=== PATIENT | male | born 1995 | race Caucasian/White ===

== ENCOUNTER 2019-09-25 21:56 | Inpatient (IN) | payer OTHER ==
[2019-09-25] MEDS ORDERED: METOPROLOL TARTRATE 5 MG/5 ML INJ IV ONE (22:39)
[2019-09-25 23:01] LABS: Absolute Lymphocytes (CBC) 4.4 K/uL (0.7-4.9); Hematocrit 42.1 % (39.6-49.0); Lymphocytes % 45.4 % (15.3-44.8); MPV 8.2 fL (7.6-11.3)
[2019-09-25 23:12] LABS: Barbiturates NEGATIVE (NEGATIVE); Benzodiazepines NEGATIVE (NEGATIVE); Cocaine NEGATIVE (NEGATIVE); METHAMPHETAM NEGATIVE (NEGATIVE); Methadone NEGATIVE (NEGATIVE); Opiates NEGATIVE (NEGATIVE); Phencyclidine NEGATIVE (NEGATIVE); THC Cannibis NEGATIVE (NEGATIVE)
[2019-09-25 23:20] LABS: Urine Blood NEGATIVE (NEG); Urine Glucose NEGATIVE (NEG); Urine Protein NEGATIVE (NEG); Urine Specific Gravity 1.015 (1.005-1.030)
[2019-09-25 23:24] LABS: ALT/SGPT 83 U/L (12-78); AST/SGOT 33 U/L (15-37); Albumin 3.9 g/dL (3.4-5.0); Alkaline Phosphatase 67 U/L (45-117); BUN Blood Urea Nitrogen 14 mg/dL (7-18); Bicarbonate 27 mmol/L (21-32); Bilirubin Direct < 0.1 mg/dL (0-0.2); Bilirubin Total 0.2 mg/dL (0.2-1.0); Glucose Level 120 mg/dL (74-106); Magnesium 2.2 mg/dL (1.8-2.4); Potassium 3.5 mmol/L (3.5-5.1); Sodium Level 142 mmol/L (136-145); Troponin (Emerg Dept Use Only) < 0.02 ng/mL (0.0-0.045)
[2019-09-25 23:25] LABS: NT PRO-BNP < 5 pg/mL (<125)
[2019-09-25 23:43] LABS: Protime INR 0.98
--- NOTE | 2019-09-25 23:55 | EDPHYS ---
Physician Documentation [facility] Name: Doe Blanton Age: 24 yrs Sex: Male : 1995 Arrival Date: 09/25/2019 Time: 21:58 Bed 2 Private MD: ED Physician Chalo Wang HPI: 09/24 22:40 This 24 yrs old Male presents to ER via Ambulatory with complaints of Heart mh7 Racing. 22:40 The patient presents with a history of heart racing. Context: The symptoms occur at mh7 rest. Onset: The symptoms/episode began/occurred suddenly, just prior to arrival. Duration: The patient or guardian reports multiple episodes, that are intermittent. Modifying factors: The symptoms are aggravated by nothing. The symptoms are alleviated by nothing. Associated signs and symptoms: Pertinent positives: SOB, Pertinent negatives: anxiety, chest pain, cough, fever, lightheadedness, nausea, syncope, near-syncope, unusual stressors, vertigo, vomiting. Severity of symptoms: At their worst the symptoms were moderate just prior to arrival, in the emergency department the symptoms have improved moderately. The patient has experienced a previous episode, approximately 5 years ago. Patient states that he felt his heart racing while he was playing video games. He also had SOB with exertion. He denies any chest pain, fever, nausea, vomiting, or abdominal pain.. Historical: - Allergies: 22:08 No Known Drug Allergies; ll1 - PMHx: 22:08 Atrial Fib; ll1 - PSHx: 22:08 None; ll1 - Immunization history:: Adult Immunizations up to date. - Social history:: Patient/guardian denies using alcohol, street drugs, tobacco products, Smoking status: Patient denies any tobacco usage or history of. ROS: 22:40 Constitutional: Negative for fever, chills, and weight loss, Eyes: Negative for injury, mh7 pain, redness, and discharge, ENT: Negative for injury, pain, and discharge, Neck: Negative for injury, pain, and swelling, Abdomen/GI: Negative for abdominal pain, nausea, vomiting, diarrhea, and constipation, Back: Negative for injury and pain, : Negative for injury, bleeding, discharge, and swelling, MS/Extremity: Negative for injury and deformity, Skin: Negative for injury, rash, and discoloration, Neuro: Negative for headache, weakness, numbness, tingling, and seizure, Psych: Negative for depression, anxiety, suicide ideation, homicidal ideation, and hallucinations, Allergy/Immunology: Negative for hives, rash, and allergies, Endocrine: Negative for neck swelling, polydipsia, polyuria, polyphagia, and marked weight changes, Hematologic/Lymphatic: Negative for swollen nodes, abnormal bleeding, and unusual bruising. Exam: 22:40 Constitutional: This is a well developed, well nourished patient who is awake, alert, mh7 and in no acute distress. Head/Face: Normocephalic, atraumatic. Eyes: Pupils equal round and reactive to light, extra-ocular motions intact. Lids and lashes normal. Conjunctiva and sclera are non-icteric and not injected. Cornea within normal limits. Periorbital areas with no swelling, redness, or edema. ENT: Nares patent. No nasal discharge, no septal abnormalities noted. Tympanic membranes are normal and external auditory canals are clear. Oropharynx with no redness, swelling, or masses, exudates, or evidence of obstruction, uvula midline. Mucous membranes moist. Neck: Trachea midline, no thyromegaly or masses palpated, and no cervical lymphadenopathy. Supple, full range of motion without nuchal rigidity, or vertebral point tenderness. No Meningismus. Chest/axilla: Normal chest wall appearance and motion. Nontender with no deformity. No lesions are appreciated. 22:40 Respiratory: Lungs have equal breath sounds bilaterally, clear to auscultation and percussion. No rales, rhonchi or wheezes noted. No increased work of breathing, no retractions or nasal flaring. Abdomen/GI: Soft, non-tender, with normal bowel sounds. No distension or tympany. No guarding or rebound. No evidence of tenderness throughout. Back: No spinal tenderness. No costovertebral tenderness. Full range of motion. Skin: Warm, dry with normal turgor. Normal color with no rashes, no lesions, and no evidence of cellulitis. MS/ Extremity: Pulses equal, no cyanosis. Neurovascular intact. Full, normal range of motion. Neuro: Awake and alert, GCS 15, oriented to person, place, time, and situation. Cranial nerves II-XII grossly intact. Motor strength 5/5 in all extremities. Sensory grossly intact. Cerebellar exam normal. Normal gait. Psych: Awake, alert, with orientation to person, place and time. Behavior, mood, and affect are within normal limits. 22:40 Cardiovascular: Rate: tachycardic, Rhythm: irregularly irregular, Pulses: no pulse deficits are appreciated, Heart sounds: normal, normal S1and S2, Edema: is not appreciated, JVD: is not appreciated. 22:40 ECG was reviewed by the Attending Physician. Vital Signs: 22:05 Pulse 160; Resp 18; Temp 97.8; Pulse Ox 99% ; Pain 0/10; ll1 22:45 BP 116 / 85; Pulse 116; Resp 18; Pulse Ox 100% on R/A; jb4 23:30 BP 125 / 98; Pulse 111; Resp 18; Pulse Ox 100% on R/A; jb4 09/25 00:05 Weight 129.1 kg (M); Height 6 ft. 0 in. (182.88 cm) (R); jb4 00:30 BP 119 / 89; Pulse 116; Resp 18; Pulse Ox 98% on R/A; jb4 01:30 BP 119 / 66; Pulse 119; Resp 16; Pulse Ox 99% on R/A; jb4 00:05 Body Mass Index 38.60 (129.10 kg, 182.88 cm) [facility] MDM: 09/24 22:08 Patient medically screened. [facility] 23:52 Differential diagnosis: arrythmia, dehydration, stress disorder. Data reviewed: vital [facility] signs, nurses notes, lab test result(s), cardiac enzymes, CBC, electrolytes. 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 Interpretation: normal. Medication response: Lopressor. Response to treatment: the patient's symptoms have markedly improved after treatment. 09/24 22:23 Order name: Basic Metabolic Panel; Complete Time: 23:47 [facility] 09/24 23:47 Interpretation: CRE 1.14. [facility] 09/24 22:23 Order name: CBC with Diff; Complete Time: 23:20 [facility] 09/24 22:23 Order name: LFT's; Complete Time: 23:47 [facility] 09/24 22:23 Order name: Magnesium; Complete Time: 23:47 [facility] 09/24 22:23 Order name: NT PRO-BNP; Complete Time: 23:47 [facility] 09/24 22:23 Order name: PT-INR [facility] 09/24 22:23 Order name: Troponin (emerg Dept Use Only); Complete Time: 23:47 [facility] 09/24 22:23 Order name: XRAY Chest (1 view) [facility] 09/24 22:23 Order name: TSH; Complete Time: 23:47 [facility] 09/24 22:23 Order name: UDS; Complete Time: 23:20 [facility] 09/24 23:00 Order name: Urine Dipstick--Ancillary (enter results); Complete Time: 23:35 4 09/24 23:25 Order name: T4 Free; Complete Time: 23:47 EDMS 09/24 22:23 Order name: EKG; Complete Time: 22:24 [facility] 09/24 22:23 Order name: Cardiac monitoring; Complete Time: 22:51 [facility] 09/24 22:23 Order name: EKG - Nurse/Tech; Complete Time: 22:51 [facility] 09/24 22:23 Order name: IV Saline Lock; Complete Time: 22:51 [facility] 09/24 22:23 Order name: Labs collected and sent; Complete Time: 22:52 [facility] 09/24 22:23 Order name: O2 Per Protocol; Complete Time: 22:52 [facility] 09/24 22:23 Order name: O2 Sat Monitoring; Complete Time: 22:51 mh7 EC:40 Rate is 130 beats/min. Rhythm is irregularly irregular, A fib. QRS [place] is Normal. [place] mh7 interval is normal. QRS interval is normal. QT interval is normal. No Q waves. T waves are Normal. No ST changes noted. Administered Medications: 22:30 Drug: Lopressor 5 mg Route: IVP; Site: right forearm; jb4 23:00 Follow up: Response: No adverse reaction; Marked relief of symptoms; Marked relief of jb4 symptoms, Heart rate decreased. 09/25 00:12 Drug: Lovenox 1 mg/kg {Note: Given 120mg per ER provider. .} Route: Sub-Q; Site: jb4 abdomen; 01:00 Follow up: Response: No adverse reaction jb4 Disposition: 09/25/19 23:54 Hospitalization ordered by Juanito Clifton for Inpatient Admission. Preliminary diagnosis is Paroxysmal atrial fibrillation. - Bed requested for Telemetry/MedSurg (Inpatient). - Status is Inpatient Admission. dh4 - Condition is Stable. - Problem is new. - Symptoms have improved. Signatures: Dispatcher [employer] EDDarcy Sosa, RN RN Nelson Dobbs RN RN 4 Phil Winkler [facility] Timur Sheth RN RN ll1 Chalo Wang MD MD mh7 Corrections: (The following items were deleted from the chart) 01:09/24 23:54 Hospitalization Ordered by Juanito Clifton for Inpatient Admission. Preliminary diagnosis is Paroxysmal atrial fibrillation. Bed requested for Telemetry/MedSurg (Inpatient). Status is Inpatient Admission. Condition is Stable. Problem is new. Symptoms have improved. mh7 09/25 01:58 01:09/25/2019 23:54 Hospitalization Ordered by Juanito Clifton for Inpatient 4 Admission. Preliminary diagnosis is Paroxysmal atrial fibrillation. Bed requested for Telemetry/MedSurg (Inpatient). Status is Inpatient Admission. Condition is Stable. Problem is new. Symptoms have improved.
--- NOTE | 2019-09-25 23:55 | ER ---
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 ll1 States he had A fib in 2012, feels the same. Coronavirus screen: Proceed with normal triage. Patient denies a cough. Patient reports shortness of breath or difficulty breathing. Patient denies measured and/or subjective temperature greater than 100.4F prior to today's visit. Patient denies travel on a cruise ship or to a country the [facility] currently lists as an affected area. Patient denies contact with known and/or suspected case of COVID-19. Ebola Screen: Patient denies travel to an Ebola-affected area in the 21 days before illness onset. Initial Sepsis Screen: Does the patient meet any 2 criteria? HR > 90 bpm. No. Patient's initial sepsis screen is negative. Does the patient have a suspected source of infection? No. Patient's initial sepsis screen is negative. Risk Assessment: Do you want to hurt yourself or someone else? Patient reports no desire to harm self or others. Onset of symptoms was September 25, 2019. 22:05 Method Of Arrival: Ambulatory [facility] 22:05 Acuity: RACHEL 2 ll1 Historical: - Allergies: 22:08 No Known Drug Allergies; ll1 - PMHx: 22:08 Atrial Fib; ll1 - PSHx: 22:08 None; ll1 - Immunization history:: Adult Immunizations up to date. - Social history:: Patient/guardian denies using alcohol, street drugs, tobacco products, Smoking status: Patient denies any tobacco usage or history of. Screenin:10 Abuse screen: Denies threats or abuse. Nutritional screening: No deficits noted. jb4 Tuberculosis screening: No symptoms or risk factors identified. Fall Risk Secondary diagnosis (15 points) A-fib . IV access (20 points). Total Huff Fall Scale indicates Low Risk Score (25-44 pts). Fall prevention measures have been instituted. Side Rails Up X 2 Placed close to Nursing Station Frequent Obs/Assesments occuring As available Patient and Family Educated on Fall Prevention Program and strategies. Assessment: 22:10 General: Appears in no apparent distress. uncomfortable, Behavior is calm, cooperative, jb4 appropriate for age, PT states " It feels like my heart is racing.". Pain: Denies pain. Neuro: Level of Consciousness is awake, alert, obeys commands, Oriented to person, place, time, situation. Cardiovascular: Patient's skin is warm and dry. Rhythm is atrial fibrillation with rapid ventricular response. Respiratory: Airway is patent Respiratory effort is even, unlabored, Respiratory pattern is regular, symmetrical, Breath sounds are clear bilaterally. GI: No signs and/or symptoms were reported involving the gastrointestinal system. : No signs and/or symptoms were reported regarding the genitourinary system. EENT: No signs and/or symptoms were reported regarding the EENT system. Derm: Skin is intact, Skin is clammy, Skin is normal, Skin temperature is warm. Musculoskeletal: Circulation, motion, and sensation intact. Range of motion: intact in all extremities. 23:30 Reassessment: Patient appears in no apparent distress at this time. Patient and/or jb4 family updated on plan of care and expected duration. Pain level reassessed. Patient is alert, oriented x 3, equal unlabored respirations, skin warm/dry/pink. Pt reports feeling better, heart rate has come down to 111. Derm: Skin is intact, Skin is dry, Skin is normal, Skin temperature is warm. 09/25 00:30 Reassessment: Patient appears in no apparent distress at this time. Patient and/or jb4 family updated on plan of care and expected duration. Pain level reassessed. Patient is alert, oriented x 3, equal unlabored respirations, skin warm/dry/pink. 01:30 Reassessment: Patient appears in no apparent distress at this time. Patient and/or jb4 family updated on plan of care and expected duration. Pain level reassessed. Patient is alert, oriented x 3, equal unlabored respirations, skin warm/dry/pink. Patient denies pain at this time. 01:46 Reassessment: Report given to RN. Kim jb4 Vital Signs: 09/24 22:05 Pulse 160; Resp 18; Temp 97.8; Pulse Ox 99% ; Pain 0/10; ll1 22:45 BP 116 / 85; Pulse 116; Resp 18; Pulse Ox 100% on R/A; jb4 23:30 BP 125 / 98; Pulse 111; Resp 18; Pulse Ox 100% on R/A; jb4 09/25 00:05 Weight 129.1 kg (M); Height 6 ft. 0 in. (182.88 cm) (R); jb4 00:30 BP 119 / 89; Pulse 116; Resp 18; Pulse Ox 98% on R/A; jb4 01:30 BP 119 / 66; Pulse 119; Resp 16; Pulse Ox 99% on R/A; jb4 00:05 Body Mass Index 38.60 (129.10 kg, 182.88 cm) jb4 ED Course: 09/24 21:58 Patient arrived in ED. cl3 22:01 Nelson Dobbs, RN is Primary Nurse. jb4 22:07 Triage completed. ll1 22:08 Chalo Wang MD is Attending Physician. 7 22:08 Arm band placed on Patient placed in an exam room, on a stretcher. ll1 22:10 Patient has correct armband on for positive identification. Placed in gown. Bed in low jb4 position. Call light in reach. Side rails up X 1. quality assurance monitor final on. Pulse ox on. NIBP on. 22:20 EKG done, by ED staff, reviewed by Chalo Wang MD. jb4 22:30 Initial lab(s) drawn, by az, sent to lab. Inserted saline lock: 18 gauge in right jb4 forearm, using aseptic technique. Blood collected. 22:47 XRAY Chest (1 view) In Process Unspecified. EDMS 23:30 EKG done, by ED staff, reviewed by Chalo Wang MD. jb4 23:54 Juanito Clifton is Hospitalizing Provider. [facility] 09/25 01:46 No provider procedures requiring assistance completed. Patient admitted, IV remains in jb4 place. Administered Medications: 09/24 22:30 Drug: Lopressor 5 mg Route: IVP; Site: right forearm; jb4 23:00 Follow up: Response: No adverse reaction; Marked relief of symptoms; Marked relief of jb4 symptoms, Heart rate decreased. 09/25 00:12 Drug: Lovenox 1 mg/kg {Note: Given 120mg per ER provider. .} Route: Sub-Q; Site: [facility] abdomen; 01:00 Follow up: Response: No adverse reaction jb Outcome: 09/24 23:54 Decision to Hospitalize by Provider. 7 09/25 01:46 Admitted to Tele accompanied by nurse, via stretcher, room 426, with chart, Report [facility] called to JOSÉ MIGUEL Alvarez Condition: stable Discharge instructions given to patient, Instructed on the need for admit, Demonstrated understanding of instructions. 01:58 Patient left the ED. [facility] Signatures: Dispatcher [employer] Nelson Villegas RN RN Génesis Holman3 Phil Winkler 4 Timur Sheth RN RN 1 Chalo Wang MD MD 7
[2019-09-26] MEDS ORDERED: ENOXAPARIN 60 MG/0.6 ML SQ ONE (00:15)
--- NOTE | 2019-09-26 01:03 | P.HP ---
Certification for Inpatient Patient admitted to: Inpatient With expected LOS: >2 Midnights Practitioner: I am a practitioner with admitting privileges, knowledge of patient current condition, hospital course, and medical plan of care. Services: Services provided to patient in accordance with Admission requirements found in Title 42 Section 412.3 of the Code of Federal Regulations Patient History Date of Service: 09/26/19 Reason for admission: Palpitation History of Present Illness: 24-year-old man with a prior history of rapid atrial fibrillation presented emergency department with sudden onset of palpitation and shortness of breath which occurred at rest. Patient denies any chest pain. He denies any cough or fever. EKG done in the emergency department demonstrated atrial fibrillation with rapid ventricular rate. Patient's heart rate responded to IV metoprolol and decreased from 160 to 120. Of note patient have had prior episode of AFib with RVR, last episode was in 2014. He was treated with sotalol and Eliquis and was gradually weaned off medications over a period of 9 months as stated by the patient. He has not had any episode of palpitation until tonight. Chest x-ray is unremarkable. Initial troponin is negative. Patient is admitted for further management. Allergies No Known Drug Allergies Allergy (Verified 05/22/14 01:52) Unknown Home Medications: NK [No Home Meds] 09/26/19 - Past Medical/Surgical History Diabetic: No -: Atrial fibrillation - Family History Family History: Reviewed- Non-Contributory - Family History Mother -: Hypertension Father History Unknown: Yes - Social History Smoking Status: Never smoker Alcohol use: No CD- Drugs: No Caffeine use: Yes Review of Systems Other: He denied any abdominal pain, no nausea or vomiting. Except as documented, all other systems reviewed and negative. Physical Examination - Physical Exam General: Alert, In no apparent distress, Oriented x3 HEENT: Atraumatic, Mucous membr. moist/pink, EOMI, Sclerae nonicteric Neck: Supple, JVD not distended, No Thyromegaly Respiratory: Clear to auscultation bilaterally, Normal air movement Cardiovascular: No edema, Normal S1 S2, No murmurs, Irregular heart rate/rhythm Capillary refill: <2 Seconds Gastrointestinal: Normal bowel sounds, Soft and benign, Non-distended, No tenderness Musculoskeletal: No swelling, No erythema Integumentary: No rashes Neurological: Normal speech, Normal strength at 5/5 x4 extr, Normal affect - Studies Laboratory Data (last 24 hrs) 09/25/19 22:25: PT 11.6, INR 0.98 09/25/19 22:25: WBC 9.6, Hgb 14.6, Hct 42.1, Plt Count 353 09/25/19 22:25: Sodium 142, Potassium 3.5, BUN 14, Creatinine 1.14, Glucose 120 H, Magnesium 2.2, Total Bilirubin 0.2, AST 33, ALT 83 H, Alkaline Phosphatase 67 Assessment and Plan - Problems (Diagnosis) (1) Atrial fibrillation with RVR Onset Date: 05/22/14 Current Visit: No Status: Acute - Plan Admit patient with telemetry. Start oral metoprolol 25 mg b.i.d. Obtain echocardiogram Cardiology consult. Anticoagulation per Cardiology. Optimize electrolytes Cardizem drip if his heart rate does not respond to the metoprolol. - Advance Directives Does patient have a Living Will: No Does patient have a Durable POA for Healthcare: No
[2019-09-26] MEDS ORDERED: METOPROLOL TAR 25 MG TAB PO ONE (02:08)
[2019-09-26] MEDS ORDERED: NA CHLORIDE 0.9% 1,000 ML IV SCH (02:08)
[2019-09-26] MEDS ORDERED: METOPROLOL TARTRATE 5 MG/5 ML INJ IV PRN (02:08)
[2019-09-26 02:28] VITALS: BMI 38.0
[2019-09-26] MEDS ORDERED: METOPROLOL TAR 25 MG TAB PO SCH (06:00)
[2019-09-26 07:03] LABS: Urine Appearance CLEAR; Urine Bilirubin NEGATIVE (NEG); Urine Blood NEGATIVE (NEG); Urine Color YELLOW; Urine Glucose NEGATIVE (NEG); Urine Protein NEGATIVE (NEG); Urine Specific Gravity 1.015 (1.005-1.030); Urine Urobilinogen 0.2 mg/dL (0.2-1.0); Urine pH 5.5 (5.0-7.0)
[2019-09-26 07:06] LABS: Urine Microscopic Reflex NO UMIC
[2019-09-26] MEDS ORDERED: POTASSIUM 25 MEQ EFFERV TAB PO ONE (07:13)
[2019-09-26] MEDS: ENOXAPARIN 40 MG/0.4 ML SQ SCH (08:23)
--- NOTE | 2019-09-26 08:28 | RAD REPORT ---
EXAM DESCRIPTION: RAD - Chest Single View - 09/25/2019 10:47 pm CLINICAL HISTORY: PALPITATIONS, shortness of breath, history of atrial fibrillation COMPARISON: Portable May 2014 TECHNIQUE: AP portable chest image was obtained 09/25/2019 10:47 pm . FINDINGS: Lung volumes are low. Lung ruiz are clear. No failure or volume overload. Heart and vasculature are normal. No measurable pleural effusion and no pneumothorax. No acute bony abnormality seen. No acute aortic findings suspected. IMPRESSION: No acute cardiopulmonary process. No significant change from comparison.
[2019-09-26] MEDS: SOTALOL HCL 80 MG TAB PO SCH ×3 (10:48→18:08)
--- NOTE | 2019-09-26 11:21 | EKG ---
Test Date: 2019-09-25 Test Time: 23:33:28 Flat Optical Element Maker: CORINNA MEASUREMENT RESULTS: Intervals: Rate: 111 [place]: QRSD: 86 QT: 312 QTc: 424 [place]: P: [place]: QRS: 152 T: 6 INTERPRETIVE STATEMENTS: Atrial fibrillation with rapid ventricular response Right axis deviation Abnormal ECG Compared to ECG 09/25/2019 22:18:36 No significant changes Electronically Signed On 09-26-19 11:21:14 CDT by Nicola Granda
--- NOTE | 2019-09-26 11:22 | EKG ---
Test Date: 2019-09-25 Test Time: 22:18:36 Sap Solution Manager Consultant: CORINNA MEASUREMENT RESULTS: Intervals: Rate: 130 [place]: QRSD: 84 QT: 270 QTc: 397 [place]: P: [place]: QRS: 152 T: 6 INTERPRETIVE STATEMENTS: Atrial fibrillation with rapid ventricular response Right axis deviation Abnormal ECG Compared to ECG 05/22/2014 12:26:36 Right-axis deviation now present Incomplete right bundle-branch block no longer present Electronically Signed On 09-26-19 11:21:25 CDT by Nicola Granda
--- NOTE | 2019-09-26 12:01 | ECHO ---
HEIGHT: 6 ft 0 in WEIGHT: 280 lb 11.2 oz DATE OF STUDY: 09/16/[address]: blank briceño 2-DIMENSIONAL: YES M.MODE: YES DOPPLER: YES COLOR FLOW: YES TDS: NO PORTABLE: NO DEFINITY: NO BUBBLE STUDY: NO DIAGNOSIS: ATRIAL FIBRILLATION CARDIAC HISTORY: CATHERIZATION: NO SURGERY: NO PROSTHETIC VALVE: NO PACEMAKER: NO MEASUREMENTS (cm) DIASTOLIC (NORMALS) SYSTOLIC (NORMALS) IVSd 1.2 (0.6-1.2) LA Diam 3.6 (1.9-4.0) LVEF 78% LVIDd 4.9 (3.5-5.7) LVIDs 2.6 (2.0-3.5) %FS 47% LVPWd 1.2 (0.6-1.2) Ao Diam 3.1 (2.0-3.7) 2 DIMENSIONAL ASSESSMENT: RIGHT ATRIUM: NORMAL LEFT ATRIUM: NORMAL RIGHT VENTRICLE: NORMAL LEFT VENTRICLE: NORMAL TRICUSPID VALVE: NORMAL MITRAL VALVE: NORMAL PULMONIC VALVE: NORMAL AORTIC VALVE: NORMAL PERICARDIAL EFFUSION: NONE AORTIC ROOT: NORMAL LEFT VENTRICULAR WALL MOTION: NORMAL. DOPPLER/COLOR FLOW: NOMRAL. COMMENTS: ATRIAL FIBRILLATION WITH RAPID VENTRICULAR RESPONSE. NORMAL 2D ECHO WITH DOPPLER. NO WALL MOTION ABNORMALITY. NO EFFUSION. NORMAL LEFT ATRIAL SIZE. NO THROMBUS. TECHNOLOGIST: CAM LUIS
--- NOTE | 2019-09-26 16:33 | P.DS ---
Admission Date: 09/26/19 Discharge Date: 09/26/19 Discharge Condition: GOOD Reason for Admission: Palpitation Hospital Course: Please refer to H&P for background. Briefly, this is a 24 year old male with known PMH of atrial fibrillation currently without tx but with a remote hx of systemic anticoagulation and rate control medications, which were discontinued by Cardiology at that time. He is well known to Cardiology. He was admitted this time with rapid atrial fibrillation. Rate control was achieved with sotalol. No systemic anticoagulation recommended this time. I had discussed the option of ablation with Cardiology. This will be assessed as outpatient. Echocardiogram was unremarkable during this admission. He will be discharged to follow up with Cardiology. Vital Signs/Physical Exam: Temp Pulse Resp BP Pulse Ox 98 F 97 H 19 102/67 98 09/26/19 15:33 09/26/19 15:33 09/26/19 15:33 09/26/19 15:33 09/26/19 15:33 General: Alert, In no apparent distress, Cooperative, Obese HEENT: Atraumatic, Normocephalic, EOMI Neck: Supple Respiratory: Clear to auscultation bilaterally, Normal air movement Cardiovascular: Normal S1 S2, Irregular heart rate/rhythm Gastrointestinal: Normal bowel sounds, Soft and benign, Non-distended Musculoskeletal: No clubbing, No swelling, No contractures, No erythema, No tenderness, No warmth Integumentary: No rashes, No breakdown, No significant lesion, No tenderness/swelling, No erythema, No warmth, No cyanosis Neurological: Normal speech, Sensation intact, Normal affect Laboratory Data at Discharge: WBC 9.6 K/uL (4.3-10.9) 09/25/19 22:25 Hgb 14.6 g/dL (13.6-17.9) 09/25/19 22:25 Hct 42.1 % (39.6-49.0) 09/25/19 22:25 Plt Count 353 K/uL (152-406) 09/25/19 22:25 PT 11.6 SECONDS (9.5-12.5) 09/25/19 22:25 INR 0.98 09/25/19 22:25 Sodium 142 mmol/L (136-145) 09/25/19 22:25 Potassium 3.5 mmol/L (3.5-5.1) 09/25/19 22:25 BUN 14 mg/dL (7-18) 09/25/19 22:25 Creatinine 1.14 mg/dL (0.55-1.3) 09/25/19 22:25 Glucose 120 mg/dL (74-106) H 09/25/19 22:25 Magnesium 2.2 mg/dL (1.8-2.4) 09/25/19 22:25 Total Bilirubin 0.2 mg/dL (0.2-1.0) 09/25/19 22:25 AST 33 U/L (15-37) 09/25/19 22:25 ALT 83 U/L (12-78) H 09/25/19 22:25 Alkaline Phosphatase 67 U/L (45-117) 09/25/19 22:25 Home Medications: Aspirin Chewable [Aspirin Chewable*] 81 mg PO DAILY #30 tab.chew 09/26/19 Sotalol HCl [Betapace*] 80 mg PO BID #60 tab 09/26/19 New Medications: Aspirin Chewable [Aspirin Chewable*] 81 mg PO DAILY #30 tab.chew Sotalol HCl [Betapace*] 80 mg PO BID #60 tab Activity: Ad kae Followup: Nicola Granda MD [ACTIVE - CAN ADMIT] - 09/30/19 (Follow up on Sunday09/30/19 or 10/02/19 in office. )
[2019-09-27] MEDS: SOTALOL HCL 80 MG TAB PO SCH (05:38)
[2019-09-27 06:10] LABS: Hematocrit 43.7 % (39.6-49.0); Lymphocytes % 43.8 % (15.3-44.8); MPV 7.8 fL (7.6-11.3); RBC Red Blood Cell Count 5.14 M/uL (4.33-5.43)
[2019-09-27 06:27] LABS: Magnesium 2.4 mg/dL (1.8-2.4); Potassium 4.5 mmol/L (3.5-5.1)
[2019-09-27] MEDS: ENOXAPARIN 40 MG/0.4 ML SQ SCH (08:02)
[2019-09-27 09:06] VITALS: O2SAT 96
[2019-09-27 09:58] VITALS: BP 122/56; TEMP 97.9
--- NOTE | 2019-09-27 20:28 | CON ---
Date of Consultation: 09/26/2019 Reason For Consultation: Recurrent atrial fibrillation. History Of Present Illness: Mr. Blanton is a 24-year-old white male. He is known to me from previo us office visits and hospital admissions. I saw him in 2014 for new-onset atrial fibrillation. He w as placed on Betapace 80 mg 1 p.o. b.i.d. and aspirin. He stayed in sinus rhythm for about a year af ter that and so I took him off the Betapace in 2016. He has done well since, but came back with anot her episode of atrial fibrillation that is symptomatic with palpitation and dyspnea. He was given be ta-dario, as heart rate was controlled down to 73. He is on metoprolol, now he is on Lovenox. He is feeling good, he is asymptomatic. Denies any PND, orthopnea, pedal edema, or syncope. He denied any chest pain or nausea or vomiting. Denied any fever or chills or diaphoresis. Past Medical History: Atrial fibrillation. Allergies: NONE. Review of Systems: Negative. Social History: Negative for tobacco, alcohol, or drugs. Family History: Noncontributory. Medications: At home include a baby aspirin. Physical Examination: General: He weighed 280 pounds. He was in atrial fibrillation at 72. HEENT: Negative. Neck: Supple with no bruit. Chest: Clear. Cardiac: Revealed atrial fibrillation. No murmurs, gallops, or rubs. Abdomen: Benign. Extremities: Revealed no clubbing, cyanosis, or edema. Diagnostic Data: Showed a TSH of 5.6. Rest of his blood work was unremarkable. His EKG showed atri al fibrillation. Chest x-ray is negative. Potassium and magnesium are normal. Echocardiogram, whic h was done today, was normal without any thrombus or left atrial enlargement. Impression And Plan: 1.Recurrent atrial fibrillation. 2.Abnormal thyroid level. We will keep an eye on his thyroid level. He may need a small dose of Synthroid, but I will re-evalu ate that later. I would like to take him off metoprolol and put him on Betapace 80 mg 1 p.o. b.i.d. Continue the aspirin. He has a very low CHADS score. I will see him in the office next week. If h e does not convert, we will consider cardioversion and also given the option of having an ablation co nsidering his age. NORA/PATRICIO Voice ID: [id number] Report ID: [id number]
--- NOTE | 2019-09-30 10:49 | EKG ---
Test Date: 2019-09-26 Test Time: 18:06:41 [employer]: VIVIAN MEASUREMENT RESULTS: Intervals: Rate: 112 [place]: QRSD: 88 QT: 324 QTc: 442 [place]: P: IA: QRS: 120 T: -5 INTERPRETIVE STATEMENTS: Atrial fibrillation with rapid ventricular response Right axis deviation Abnormal QRS-T angle, consider primary T wave abnormality Abnormal ECG Compared to ECG 09/25/2019 23:33:28 T-wave abnormality now present Electronically Signed On 09-30-19 10:47:34 CDT by Nicola Granda
== END 2019-09-27 10:16 | disposition home or self-care (01) | DRG 310 ==
LOC: ER 21:56 → ERHOLD 09-26 01:09 → 4TH 09-26 01:46 → 2ND 09-26 18:27
PROVIDERS: ADMIT Internal Medicine; ATTEND Internal Medicine
DX: I48.91 Unspecified atrial fibrillation (principal); E66.9 Obesity, unspecified; Z68.38 Body mass index [BMI] 38.0-38.9, adult; R94.6 Abnormal results of thyroid function studies; Z79.82 Long term (current) use of aspirin
CPT/HCPCS: 36415; 71045; 80048; 80061; 80076; 80307; 81003; 83735; 83880; 84100; 84439; 84443; 84484; 85025; 85610; 93005; 93306; 94760; 96372; 96374; 99285; J1650; J7030